=== PATIENT | female | born 1965 | race African-American/Black ===

== ENCOUNTER 2017-08-04 14:06 | Emergency (ER) | payer OTHER ==
[~2017-08-04] VITALS: Ht 165.1 cm; Wt 94.8 kg
[~2017-08-04 14:06] MED LIST: AMBIEN 5 MG TABL5 M1 PO; GEODON60 MG PO; HYDROCHLOROTHIA25 M2 PO; NORVASC5 MG PO; PHENERGAN 25 MG25 M1 PO; SUPREP BOWEL P354 ML PO; VENTOLIN HFA 1818 GM INH
[2017-08-04] MEDS ORDERED: HYDROCODONE-AP1 EAC6 PO (15:30)
[2017-08-04] MEDS ORDERED: IBUPROFEN 600600 M1 PO (15:30)
[2017-08-04 15:40] VITALS: BP 131/84
== END 2017-08-04 15:45 | disposition home or self-care (01) ==
LOC: ER 14:06
DX: S29.012A Strain of muscle and tendon of back wall of thorax, initial encounter (principal); S20.212A Contusion of left front wall of thorax, initial encounter; I10 Essential (primary) hypertension; J45.909 Unspecified asthma, uncomplicated; X58.XXXA Exposure to other specified factors, initial encounter; Y93.89 Activity, other specified; Y92.89 Other specified places as the place of occurrence of the external cause; Y99.8 Other external cause status